=== PATIENT | female | born 1970 | race African-American/Black ===

== ENCOUNTER 2024-11-27 12:18 | Inpatient (IN) | payer OTHER ==
[~2024-11-27] VITALS: Ht 167.6 cm; Wt 90.7 kg
[2024-11-27 15:36] VITALS: PULSE 76; RESP 18; O2SAT 96
[2024-11-27 16:07] LABS: BASOPHILS % 0.2 % (0.0-1.0); EOSINOPHILS % 1.0 % (0.0-6.0); LYMPHOCYTES % 51.8 % (18.0-39.1); MONOCYTES % 7.7 % (4.4-11.3); NEUTROPHILS % 39.1 % (38.7-80.0); RED CELL DISTRIBUTION WIDTH 14.3 % (11.7-14.4)
[2024-11-27] MEDS ORDERED: HYDRALAZINE HCL 20 MG/ML VIAL IV PRN (16:45)
[2024-11-27] MEDS ORDERED: ONDANSETRON HCL INJ 2MG/ML 2ML 2 MG/ML VIAL IV PRN (16:45)
[2024-11-27] MEDS ORDERED: POTASSIUM CHLORIDE 20 MEQ TAB CR PO PRN (16:45)
[2024-11-27] MEDS ORDERED: DIPHENHYDRAMINE HCL 25 MG CAP PO PRN (16:45)
[2024-11-27] MEDS ORDERED: LIDOCAINE 4% PATCH TP PRN (16:45)
[2024-11-27] MEDS ORDERED: DEXTROSE 50% SYRINGE 50 ML IV PRN (16:45)
[2024-11-27] MEDS ORDERED: SIMETHICONE 80 MG CHEW PO PRN (16:45)
[2024-11-27] MEDS ORDERED: ALBUTEROL/IPRATROPIUM 3 ML NEB NEB PRN (16:45)
[2024-11-27] MEDS ORDERED: BENZONATATE 100 MG CAP PO PRN (16:45)
[2024-11-27] MEDS ORDERED: DOCUSATE SODIUM 100 MG CAP PO PRN (16:45)
[2024-11-27] MEDS ORDERED: APIXABAN 5 MG TABLET PO SCH (17:00)
[2024-11-27 17:06] LABS: EST GLOMERULAR FILTRATION RATE 81.0 ML/MIN (>=60)
[2024-11-27 20:15] VITALS: PULSE 71; RESP 16; TEMP 97.8
[2024-11-27] MEDS: METOPROLOL TARTRATE 25 MG TAB PO SCH (20:22)
[2024-11-27] MEDS: SODIUM CHLORIDE 0.9% 1000ML 1,000 ML IV SCH (20:22)
[2024-11-27 21:00] VITALS: BP 96/65; PULSE 70; RESP 17; TEMP 97.6; O2SAT 99
[2024-11-27 21:31] VITALS: BP 96/65; PULSE 70; RESP 17; TEMP 97.6; O2SAT 99
[2024-11-27] MEDS ORDERED: AMLODIPINE BES2.5 MG PO (21:36)
[2024-11-27] MEDS ORDERED: ESTRADIOL1 MG PO (21:36)
[2024-11-27] MEDS ORDERED: PANTOPRAZOLE SO40 MG PO (21:36)
[2024-11-27 21:38] VITALS: BP 96/65; PULSE 70; RESP 17; TEMP 97.6; O2SAT 99
[2024-11-27] MEDS: APIXABAN 5 MG TABLET PO SCH (22:17)
[2024-11-27 22:53] VITALS: PULSE 63; RESP 15; O2SAT 97
[2024-11-28] VITALS (8 sets, daily range): BP systolic 122–131; BP diastolic 59–78; PULSE 61–74; RESP 16–20; TEMP 97.5–98.3; O2SAT 96–100
[2024-11-28] MEDS ORDERED: IOPAMIDOL 370 MG/ML 100 ML INFUS..BTL INJ ONE ×2 (06:01→10:54)
[2024-11-28 06:44] LABS: BASOPHILS % 0.2 % (0.0-1.0); EOSINOPHILS % 1.0 % (0.0-6.0); LYMPHOCYTES % 52.2 % (18.0-39.1); MONOCYTES % 7.7 % (4.4-11.3); NEUTROPHILS % 38.6 % (38.7-80.0); RED CELL DISTRIBUTION WIDTH 14.4 % (11.7-14.4)
[2024-11-28 07:14] LABS: EST GLOMERULAR FILTRATION RATE 77.0 ML/MIN (>=60)
[2024-11-28 07:33] LABS: CHOL/HDL RATIO 2.8 (3.0-3.6); LDL CHOLESTEROL 81.0 MG/DL (60-130); PHOSPHORUS 4.0 MG/DL (2.3-4.7)
[2024-11-28] MEDS: PANTOPRAZOLE SOD 40 MG TABEC PO SCH (09:27)
[2024-11-28] MEDS: ACETAMINOPHEN 325 MG TAB PO PRN (14:16)
[2024-11-28] MEDS: MELATONIN 5 MG TABLET PO PRN (20:44)
[2024-11-28] MEDS: ATORVASTATIN 40 MG TAB PO SCH (20:45)
[2024-11-29 00:33] VITALS: BP 133/80; PULSE 63; RESP 16; TEMP 97.6; O2SAT 98
[2024-11-29 04:56] VITALS: BP 112/65; PULSE 61; RESP 16; TEMP 97.7; O2SAT 98
[2024-11-29 06:21] LABS: BASOPHILS % 0.2 % (0.0-1.0); EOSINOPHILS % 1.4 % (0.0-6.0); LYMPHOCYTES % 57.2 % (18.0-39.1); MONOCYTES % 6.4 % (4.4-11.3); NEUTROPHILS % 34.6 % (38.7-80.0); RED CELL DISTRIBUTION WIDTH 14.2 % (11.7-14.4)
[2024-11-29 06:58] LABS: EST GLOMERULAR FILTRATION RATE 89.0 ML/MIN (>=60)
[2024-11-29 07:57] VITALS: PULSE 72; RESP 20; O2SAT 97
[2024-11-29] MEDS ORDERED: GADOBENATE DIMEGLUMINE 1 ML IV ONE (08:57)
[2024-11-29 09:46] VITALS: BP 126/75; PULSE 58; RESP 18; TEMP 98; O2SAT 100
[2024-11-29 12:09] VITALS: BP 147/82; PULSE 59; RESP 18; TEMP 98.6; O2SAT 100
[2024-11-29 13:17] VITALS: PULSE 74; RESP 20; O2SAT 95
== END 2024-11-29 16:15 | disposition home or self-care (01) | DRG 309 ==
LOC: ER 13:10 → ERHOLD 13:15 → MED/SURG3 21:08
PROVIDERS: ADMIT Internal Medicine; ATTEND Internal Medicine
DX: I48.20 Chronic atrial fibrillation, unspecified (principal); G45.9 Transient cerebral ischemic attack, unspecified; I10 Essential (primary) hypertension; R20.8 Other disturbances of skin sensation; R20.0 Anesthesia of skin; R20.2 Paresthesia of skin
CPT/HCPCS: 36415; 70544; 70553; 71260; 80048; 80053; 80061; 82550; 83036; 83735; 84100; 84443; 84484; 85025; 93005; 93306; 93880; 94799; 99284; J2470; J7030; Q9967